=== PATIENT | female | born 1990 | race Caucasian/White ===

== ENCOUNTER 2025-05-22 10:21 | Emergency (ER) | payer SELFPAY ==
[2025-05-22 10:38] VITALS: BP 110/76; BP 115/89; PULSE 126; PULSE 143; RESP 19; RESP 20; TEMP 36.9; TEMP 37.1; O2SAT 100; O2SAT 98
--- NOTE | 2025-05-22 11:19 | ECG_ITS ---
Test Date: 2025-05-22 11:34:59 Measurements Intervals [place] Rate: 131 P: 68 MS: 135 QRS: 66 QRSD: 83 T: -23 QT: 333 QTc: 493 Interpretive Statements SINUS TACHYCARDIA NONSPECIFIC T-WAVE ABNORMALITY BORDERLINE ECG No previous ECG available for comparison Electronically Signed On 05-23-2025 15:44:25 CDT by Forrest Salazar M.D.
--- NOTE | 2025-05-22 12:23 | ED_ITS ---
HPI - General Adult General Chief complaint: Unspecified Stated complaint: detox from Fentanyl Time Seen by Provider: 05/22/25 12:03 History of Present Illness HPI narrative: this is a 35-year-old female with no significant past medical history presents to ED for concerns for functional dural. Patient states that she quit using fentanyl please go. She has been using it for years. She is from [place] and is visiting a friend. She has had diffuse body aches, shakes, anxiety, restlessness. Denies any other symptoms at this time. Reports she is interested medically assisted withdrawal. Related Data Allergies Allergy/AdvReac Type Severity Reaction Status Date / Time No Known Allergies Allergy Verified 05/22/25 10:38 Review of Systems 2 Review of Systems: Gen.: As per HPI Eyes: Denies eye pain or visual change ENT: Denies congestion Respiratory: Denies shortness of breath or cough CV: Denies chest pain or palpitations GI: Denies abdominal pain nausea, emesis or diarrhea denies burning, urgency, frequency or hematuria Musculoskeletal: as per HPI Neuro: Denies numbness, tingling, weakness or focal weakness Skin: Denies rash Except as documented, all other systems reviewed and negative Exam 2 Narrative: APPEARANCE: lying in bed with eyes closed in position, tossing and turning occasionally EYES: pupils 4 mm bilaterally, reactive to light HEENT: Normocephalic, atraumatic, OMM. Very poor dentition RESPIRATORY: No respiratory distress Clear to auscultation bilaterally with no rhonchi wheezing or rales. CARDIOVASCULAR: tachycardic with regularrhythm without murmurs rubs or gallops. ABDOMINAL: Soft, nontender, nondistended, no rebound or guarding MUSCULOSKELETAl: Moves all extremities. No clubbing, cyanosis or edema. diffuse tenderness to light palpation to entire body NEURO: Awake and alert. Following commands, speech normal, no focal deficits SKIN:: Warm, dry. No rashes lesions or abrasions PSYCHIATRIC: Normal affect/mood, Course Vital Signs Vital signs: Vital Signs Temperature 98.7 F 05/22/25 10:38 Pulse Rate 143 H 05/22/25 10:38 Respiratory Rate 19 05/22/25 10:38 Blood Pressure 115/89 05/22/25 10:38 Pulse Oximetry 98 05/22/25 10:38 Oxygen Delivery Room Air 05/22/25 10:38 Temperature 98.5 F 05/22/25 10:38 Pulse Rate 75 05/22/25 16:22 Respiratory Rate 16 05/22/25 16:22 Blood Pressure 97/59 L 05/22/25 16:22 Pulse Oximetry 97 05/22/25 16:22 Oxygen Delivery Room Air 05/22/25 10:38 Medical Decision Making MDM Narrative Medical decision making narrative: 35-year-old female who presented to the ED for concerns for opioid withdrawal. On initial evaluation, patient was in position in moderate discomfort. Tachycardic to 140s but otherwise stable. COWS score 13, suggesting moderate opioid withdrawal. The patient was given the morphine sublingual but only had minimal improvement of symptoms and was becoming somewhat agitated so she was given clonidine initial dose of buprenorphine. Her symptoms did improve after this but she was somewhat somnolent. Continue to monitor the patient with out any significant changes, she was only intermittently participating and history and exam. After some monitoring, she was able to ambulate through the department without any significant assistance. I did reach out to the patient's contact who is unfortunately going to be out of town for the next few days. Patient is otherwise homeless and has no contacts in the area. Case management was contacted and patient will be taken to homeless retirement she will be given a prescription for buprenorphine. Patient is agreeable to this plan. Given strict return precautions. Differential Diagnosis Differential Diagnosis: Opioid withdrawal, polysubstance abuse, UTI Medical Records Medical records reviewed: Yes I reviewed the external patient's medical records. Vital Signs Vital Signs: Vital Signs Temperature 98.7 F 05/22/25 10:38 Pulse Rate 143 H 05/22/25 10:38 Respiratory Rate 19 05/22/25 10:38 Blood Pressure 115/89 05/22/25 10:38 Pulse Oximetry 98 05/22/25 10:38 Oxygen Delivery Room Air 05/22/25 10:38 Temperature 98.5 F 05/22/25 10:38 Pulse Rate 75 05/22/25 16:22 Respiratory Rate 16 05/22/25 16:22 Blood Pressure 97/59 L 05/22/25 16:22 Pulse Oximetry 97 05/22/25 16:22 Oxygen Delivery Room Air 05/22/25 10:38 Lab Data Lab results reviewed: Yes I reviewed the patient's lab results. 05/22/25 15:09 05/22/25 15:44 Labs: Lab Results 05/22/25 05/22/25 05/22/25 Range/Units 12:49 15: 15:44 WBC 8.9 (4.5-10.0) K/mm3 RBC 4.72 (4.2-5.4) M/mm3 Hgb 13.0 (12.0-15.0) g/dL Hct 42.5 (37.0-47.0) % MCV 90.0 (80-100) fl MCH 27.5 (26-34) pg MCHC 30.6 L (32-36) g/dl RDW 14.3 (11.5-14.5) % Plt Count 277 (150-375) k/mm3 MPV 9.5 (7.4-10.4) fl Immature Gran % (Auto) 0.3 (0-0.5) % Neut % (Auto) 79.3 H (45.5-73.1) % Lymph % (Auto) 15.6 L (18.3-44.2) % [place] % (Auto) 4.4 (2.6-8.5) % Eos % (Auto) 0.1 (0-4.4) % Baso % (Auto) 0.3 (0.2-1.2) % Lymph # (Auto) 1.39 (0.9-3.2) K/mm3 [place] # (Auto) 0.4 (0.1-0.6) K/mm3 Eos # (Auto) 0.0 (0-0.3) K/mm3 Baso # (Auto) 0.0 (0.0-0.1) K/mm3 Abs Immat Gran (auto) 0.03 (0.00-0.031) K/mm3 Absolute Neuts (auto) 7.1 H (1.3-6.7) K/mm3 Absolute Nucleated RBC 0.000 (0.0-0.012) K/mm3 Band Neutrophils % Not Reportable Nucleated RBC % 0.0 (0.0-0.2) % Platelet Estimate Adequate (Adequate) % Immature Plt Fraction 2.8 (0.9-11.2) % Schistocytes None seen Sodium 140 (137-145) mmol/L Potassium 4.8 (3.4-5.0) mmol/L Chloride 107 (98-107) mmol/L Carbon Dioxide 25 (22-30) mmol/L Anion Gap 8 (4-12) mmol/L BUN 18 H (7-17) mg/dL Creatinine 0.76 (0.7-1.0) mg/dL Estim Creat Clear Calc 61 ml/min Estimated GFR > 60 (59 - ) Glucose 101 (65-110) mg/dL Calcium 9.5 (8.4-10.2) mg/dL Total Bilirubin 0.1 L (0.2-1.3) mg/dL AST 22 (14-36) U/L ALT 18 (6-35) U/L Alkaline Phosphatase 58 (38-126) U/L Total Protein 7.4 (6.3-8.2) g/dL Albumin 4.3 (3.5-5.1) g/dL Urine Color Yellow (Yellow) Urine Appearance Clear (Clear) Urine pH 6.5 (5.0-9.0) Ur Specific [place] 1.025 (1.001-1.035) Urine Protein Negative (Negative) mg/dL Urine Glucose (UA) Trace H (Negative) mg/dL Urine Ketones Negative (Negative) mg/dL Ur Blood (Man) Negative (Negative) Urine Nitrate Negative (Negative) Urine Bilirubin Negative (Negative) Urine Urobilinogen 0.2 (<2.0) mg/dL Leukocyte Esterase Rfl 3+ H (Negative) ZAHIRA/UL Urine RBC 3-5 H (0-2) /hpf Urine WBC 21-50 H (0-3) /hpf Ur Squamous Epith Cells None seen (Few) /hpf Urine Bacteria None seen /hpf Urine Casts 0-2 Urine Opiates Screen Negative (Negative) Urine Methadone Screen Negative (Negative) Ur Barbiturates Screen Negative (Negative) Ur Phencyclidine Scrn Negative (Negative) Ur Amphetamine Screen Positive A (Negative) U Benzodiazepines Scrn Negative (Negative) Urine Cocaine Screen Negative (Negative) U Cannabinoids Screen Positive A (Negative) ECG Data EKG #1: ECG completion date: 05/22/25 ECG completion time: 11:34 Interpretation: Sinus tachycardia rate of 131, normal axis, normal intervals, nonspecific T-wave changes, no ST segment changes Discharge Plan Discharge Clinical Impression: Opioid dependence with withdrawal, Amphetamine abuse, Homeless Patient Disposition: Home Condition: Stable Instructions: Antibiotic Form, Methamphetamine Use Disorder (ED), Narcotic Withdrawal (ED) Additional Instructions: Seek detox for opiates if desired. Return to the ED for any new or worsening symptoms. Patient Language: Hungarian Prescriptions: New buprenorphine-naloxone 8-2 mg film 1 film buccal DAILY Qty: 30 0RF Follow-up/Referrals: PHYSICIAN,MILLER WOOD [facility]OUR [Primary Care Provider, Internal Medicine]
--- NOTE | 2025-05-22 12:45 | PC.NURSE ---
This RN woke up pt. and educated her that provider has ordered a urine sample. Pt. is A&Ox4 and stated that she cannot urinate at this time. She was ok with a straight cath. This RN and ALYSA Turner attempted to straight cath pt. Pt. screamed when cleaning vaginal area yelling stop it! This RN immediately stopped. Pt. then stated she could urinate on her own. Pt. walked to bathroom by this RN. Gait unsteady, requiring standby assist x1. Pt. able to urinate on her own and return to bed. Pt. agitated, yelling thrashing her arms and leg in bed, and then quickly falls asleep.
[2025-05-22 12:58] VITALS: BP 108/65; PULSE 112; RESP 22; O2SAT 100
[2025-05-22 13:05] LABS: Add Urine Microscopic? YES; Appearance Urine Clear (Clear); Glucose Urine UA Trace mg/dL (Negative); Leukocyte Esterase Ur 3+ LEU/UL (Negative); Nitrate Urine Negative (Negative); Non Pathogenic Casts 0-2; Specific Grav Ur 1.025 (1.001-1.035)
[2025-05-22 13:27] LABS: Cannabinoid Screen Urine Positive (Negative)
--- NOTE | 2025-05-22 13:28 | PC.NURSE ---
Pt. continues to role around in bed yelling my pussy hurts! When pt. asked to explained she states I'm just coming down! Pt. asked to stop yelling. Education not received.
--- NOTE | 2025-05-22 13:54 | PC.NURSE ---
Pharmacy called for update on medication delivery. Pharmacist states the medication will be walked up shortly.
[2025-05-22 14:00] VITALS: BP 114/75; PULSE 98; RESP 18; O2SAT 97
[2025-05-22] MEDS: BUPRENORPHINE HCL (*CRX) 2 MG SUBLINGUAL TABLET 4 MG SUBLINGUAL ×2 (14:03→15:11)
--- NOTE | 2025-05-22 14:14 | PC.NURSE ---
Pt. continues to yell and thrash about in bed. Pt. remains A&Ox4. Pt. yells my vagina, it hurts! When asked to describe the pain she yells I need a vibrator to relieve it! Pt. educated that we do not have those in the hospital. Pt. then yells fuck you! at this RN.
[2025-05-22 15:13] VITALS: BP 109/68; PULSE 66; RESP 16; O2SAT 100
--- NOTE | 2025-05-22 15:13 | PC.NURSE ---
When attempting to draw labs from pt., pt. screamed and thrashed. Pt. remains A&Ox4 but could not be verbally redirected.
[2025-05-22 15:26] LABS: Hematocrit 42.5 % (37.0-47.0); Hemoglobin 13.0 g/dL (12.0-15.0); Immature Granulocyte Percent A 0.3 % (0-0.5); Immature Platelet Fraction Pct 2.8 % (0.9-11.2); Lymphocytes Absolute Auto 1.39 K/mm3 (0.9-3.2); Mean Corpuscular HGB Conc 30.6 g/dl (32-36); Mean Corpuscular Hemoglobin 27.5 pg (26-34); Mean Corpuscular Volume 90.0 fl (80-100); Nucleated Red Blood Cells Absolute Auto 0.000 K/mm3 (0.0-0.012); Nucleated Red Blood Cells Perc 0.0 % (0.0-0.2); Platelet Count Result 277 k/mm3 (150-375); Red Blood Count 4.72 M/mm3 (4.2-5.4); White Blood Count 8.9 K/mm3 (4.5-10.0)
[2025-05-22 15:41] LABS: Schistocytes None Seen
[2025-05-22 16:03] LABS: Alanine Aminotransferase 18 U/L (6-35); Albumin Level 4.3 g/dL (3.5-5.1); Alkaline Phosphatase 58 U/L (38-126); Anion Gap 8 mmol/L (4-12); Aspartate Amino Transferase 22 U/L (14-36); Bilirubin,Total 0.1 mg/dL (0.2-1.3); Blood Urea Nitrogen 18 mg/dL (7-17); Calcium 9.5 mg/dL (8.4-10.2); Carbon Dioxide 25 mmol/L (22-30); Chloride 107 mmol/L (98-107); Estimated CRCL calculation 61 ml/min; Estimated Glomerular Filt Rate > 60; Glucose 101 mg/dL (65-110); Potassium 4.8 mmol/L (3.4-5.0); Sodium 140 mmol/L (137-145); Total Protein 7.4 g/dL (6.3-8.2)
--- NOTE | 2025-05-22 16:21 | PC.NURSE ---
Dr. Durham at bedside talking with pt.
[2025-05-22 16:22] VITALS: BP 97/59; PULSE 75; RESP 16; O2SAT 97
--- NOTE | 2025-05-22 16:33 | PC.NURSE ---
Pt. able to ambulate independently in ER. aware.
--- NOTE | 2025-05-22 16:47 | PC.NURSE ---
Care coordination called for [facility] for pt.
--- NOTE | 2025-05-22 17:14 | PC.NURSE ---
Pt. alert x4 and cooperative. Pt. eating and drinking in room. Pt. given a bag from care coordination with clothes and toiletries. Pt. states she has nowhere to go. Pt. also provided with a cab voucher to homeless [facility] by care coordination.
[2025-05-22 17:31] VITALS: BP 102/67; PULSE 88; RESP 16; O2SAT 98
== END 2025-05-22 17:36 | disposition home or self-care (01) ==
PROVIDERS: Emergency Provider Student in an Organized Health Care Education/Training Program
DX: F11.23 Opioid dependence with withdrawal (principal); F15.10 Other stimulant abuse, uncomplicated; Z59.00 Homelessness unspecified
CPT/HCPCS: 36415; 80053; 80307; 81001; 85025; 85055; 87086; 93005; 99283; A9270